=== PATIENT | male | born 1995 | race Two or more races ===

== ENCOUNTER 2020-07-11 10:09 | Emergency (ER) | payer MEDICAID ==
[~2020-07-11] VITALS: Ht 177.8 cm; Wt 99.8 kg
[2020-07-11] MEDS ORDERED: PANTOPRAZOLE 40 MG/10 ML VIAL INJ IV STA (10:15)
[2020-07-11] MEDS ORDERED: PROCHLORPERAZINE EDISYLATE 5 MG/ML 2ML VIAL IV ONE (10:15)
[2020-07-11] MEDS ORDERED: SODIUM CHLORIDE 0.9% 1,000 ML IVB ONE (10:15)
[2020-07-11] MEDS ORDERED: MORPHINE SULFATE 4 MG/ML SYR/VIAL IV ONE (10:15)
[2020-07-11 10:51] LABS: Albumin 4.9 g/dL (3.4-5.0); Calcium 9.9 mg/dL (8.5-10.1); Potassium 3.8 mmol/L (3.5-5.1)
[2020-07-11 10:55] LABS: BUN/Creatinine Ratio 17.5; Total Protein 9.5 g/dL (6.4-8.2)
[2020-07-11 10:56] LABS: Hematocrit 54.3 % (41.0-53.0); Hemoglobin 19.1 g/dL (13.5-17.5); Mean Corpuscular Hemoglobin 32.8 pg (28.0-32.0); Mean Corpuscular Hgb Conc. 35.3 g/dL (32.0-36.0); Mean Corpuscular Volume 93.1 fL (80.0-100.0); Platelet Count (auto) 331 10^3/uL (140-450); Red Blood Cells 5.83 10^6/uL (4.5-5.90); Red Cell Distribution Width 13.8 % (11.8-14.3); White Blood Cell 17.7 10^3/uL (4.4-10.8)
[2020-07-11 10:58] LABS: Basophils % (manual) 0 (0.0-2.0); Blast Cells 0; Eosinophils % (manual) 0 (0-7); Metamyelocytes % 0; Myelocytes % 0; Promyelocytes % 0; Reactive Lymphocytes 0
[2020-07-11 11:10] VITALS: BP 132/81
[2020-07-11 11:16] LABS: Urine Bacteria NONE SEEN /hpf (None Seen); Urine Blood 1+ /uL (Negative); Urine Mucus MANY (None Seen); Urine Specific Gravity 1.036 (1.001-1.035); Urine WBC 1 /hpf (0 - 3)
[2020-07-11 11:36] LABS: Band Neutrophils % (manual) 10; Lymphocytes % (manual) 1 (10.0-50.0); Monocytes % (manual) 4 (0-12)
== END 2020-07-11 12:42 | disposition home or self-care (01) ==
LOC: ER 10:09
DX: R11.2 Nausea with vomiting, unspecified (principal); R19.7 Diarrhea, unspecified
CPT/HCPCS: 36415; 74176; 80053; 81001; 83690; 85007; 85027; 96361; 96374; 96375; 99284; C9113; J0780; J2270